=== PATIENT | male | born 2000 | race African-American/Black ===

== ENCOUNTER 2021-10-29 22:37 | Emergency (ER) | payer OTHER ==
[2021-10-30] MEDS ORDERED: Ketorolac Tromethamine 30 MG/ML VIAL ONE (00:12)
== END 2021-10-30 01:50 | disposition home or self-care (01) ==
LOC: ERS 22:37
DX: S21.239A Puncture wound without foreign body of unspecified back wall of thorax without penetration into thoracic cavity, initial encounter (principal); R07.89 Other chest pain; W34.00XA Accidental discharge from unspecified firearms or gun, initial encounter
CPT/HCPCS: 71250; 72128; 93005; 96372; J1885

== ENCOUNTER 2021-11-08 18:43 | Emergency (ER) | payer OTHER, SELFPAY ==
[2021-11-08] MEDS ORDERED: Ketorolac Tromethamine 30 MG/ML VIAL ONE (20:29)
== END 2021-11-08 20:35 | disposition home or self-care (01) ==
LOC: ERS 18:43
DX: S31.000A Unspecified open wound of lower back and pelvis without penetration into retroperitoneum, initial encounter (principal); W34.00XA Accidental discharge from unspecified firearms or gun, initial encounter
CPT/HCPCS: 96372; 99283; J1885

== ENCOUNTER 2022-05-07 19:19 | Emergency (ER) | payer SELFPAY | END 2022-05-07 21:21 | disposition home or self-care (01) | LOC: ERS 19:19 | DX: M54.6 Pain in thoracic spine (principal) | CPT/HCPCS: 72072 ==

== ENCOUNTER 2022-11-14 13:33 | Emergency (ER) | payer SELFPAY ==
[2022-11-14] MEDS ORDERED: Proparacaine 0.5% Opth 15 ML BOT ONE (14:29)
[2022-11-14] MEDS ORDERED: Fluorescein Opthalmic Strip ONE (14:30)
== END 2022-11-14 15:06 | disposition home or self-care (01) ==
LOC: ERS 13:33
DX: H10.9 Unspecified conjunctivitis (principal)
CPT/HCPCS: 99282

== ENCOUNTER 2024-04-30 12:21 | Emergency (ER) | payer OTHER, SELFPAY ==
[2024-04-30] MEDS ORDERED: Ketorolac Tromethamine 30 MG (1 mL) VIAL ONE (14:08)
== END 2024-04-30 14:25 | disposition home or self-care (01) ==
LOC: ERS 12:21
DX: S91.112A Laceration without foreign body of left great toe without damage to nail, initial encounter (principal); F17.290 Nicotine dependence, other tobacco product, uncomplicated; W22.01XA Walked into wall, initial encounter
CPT/HCPCS: 96372; J1885